=== PATIENT | female | born 1985 | race Caucasian/White ===

== ENCOUNTER 2018-10-10 18:10 | Emergency (ER) | payer SELFPAY ==
[2018-10-10 18:18] VITALS: BP 113/57
--- NOTE | 2018-10-10 19:05 | EDM.PDOC ---
ED HPI GENERAL MEDICAL PROBLEM - General Chief Complaint: Headache Stated Complaint: migraine Time Seen by Provider: 10/10/18 18:45 Source of Information: Reports: Patient History Limitations: Reports: No Limitations - History of Present Illness INITIAL COMMENTS - FREE TEXT/NARRATIVE: Patient comes to ER with complaint of migraine. History of migraines, felt to be hormonal in nature. Is trying control pills to avoid having a period to see if this helps the headaches but she missed a few pills and is now having breakthrough bleeding. Has nausea, no emesis. No auras. Denies neuro changes such as numbness/weakness. No visual changes. Headache is all over, but more right sided tonight. No usual changes in presentation or pain complaint when compared to previous migraines. 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, Other Medication(s) Right Head Pain Score (Numeric/FACES): 10 - Related Data Allergies Allergy/AdvReac Type Severity Reaction Status Date / Time ciprofloxacin [From Cipro] Allergy Hives Verified 10/10/18 18:11 Home Meds: Home Meds Loratadine/Pseudoephedrine [Claritin-D 24 Hour Tablet] 1 each PO DAILY 02/25/18 [History] Magnesium Oxide [Magnesium] 2 tab PO DAILY 10/10/18 [History] Rizatriptan Benzoate [Rizatriptan] 1 tab PO ASDIRECTED 10/10/18 [History] l-Norgest/E.estradion-E.estrad [Daysee 0.15-0.03-0.01 mg Tab] 1 tab PO DAILY [History] Past Medical History HEENT History: Reports: Impaired Vision Neurological History: Reports: Migraines Social & Family History - Caffeine Use Caffeine Use: Reports: Soda ED ROS GENERAL - Review of Systems Review Of Systems: See Below Constitutional: Reports: Decreased Appetite HEENT: Denies: Vertigo, Vision Change Respiratory: Reports: No Symptoms Cardiovascular: Reports: No Symptoms GI/Abdominal: Reports: Nausea. Denies: Abdominal Pain, Constipation, Diarrhea, Vomiting : Reports: No Symptoms Musculoskeletal: Reports: No Symptoms Skin: Reports: No Symptoms Neurological: Reports: Headache. Denies: Confusion, Dizziness, Numbness, Paresthesia, Seizure, Syncope, Tingling, Trouble Speaking, Difficulty Walking, Weakness, Change in Speech, Gait Disturbance Psychiatric: Reports: No Symptoms Hematologic/Lymphatic: Reports: No Symptoms - Physical Exam Exam: See Below Exam Limited By: No Limitations General Appearance: Alert, WD/WN, Mild Distress (sitting in dark room) Eye Exam: Bilateral Eye: EOMI, PERRL Ears: Normal External Exam, Hearing Grossly Normal Nose: No: Nasal Deformity, Nasal Swelling, Nasal Drainage Throat/Mouth: Normal Lips, Normal Voice, No Airway Compromise Head Exam: Atraumatic, Normocephalic Neck: Supple Respiratory/Chest: No Respiratory Distress, Lungs Clear Cardiovascular: Regular Rate, Rhythm GI/Abdominal: Soft (Female) Exam: Deferred Rectal (Female) Exam: Deferred Neuro Exam (Abbreviated): Alert, Oriented, Normal Cognition, Normal Gait, No Motor/Sensory Deficits Extremities: Normal Range of Motion Psychiatric: Normal Affect, Normal Mood Skin Exam: Warm, Dry, Intact, Normal Color Course - Vital Signs Last Recorded V/S: Last Vital Signs Temp 36.7 C 10/10/18 18:16 Pulse 81 10/10/18 18:16 Resp 18 10/10/18 18:16 BP 113/57 L 10/10/18 18:16 Pulse Ox 100 10/10/18 18:16 - Orders/Labs/Meds Orders: Active Orders 24 hr Category Date Time Status Sodium Chloride 0.9% [Saline Flush] Med 10/10/18 20:08 Ordered 10 ml FLUSH ASDIRECTED PRN Saline Lock Insert [OM.PC] Routine Oth 10/10/18 20:08 Ordered Medication Orders Sodium Chloride (Saline Flush) 10 ml FLUSH ASDIRECTED PRN PRN Reason: Keep Vein Open Meds: Medications Generic Name Dose Route Start Last Admin Trade Name Freq PRN Reason Stop Dose Admin Sodium Chloride 10 ml 10/10/18 20:08 Saline Flush FLUSH ASDIRECTED PRN Keep Vein Open Discontinued Medications Generic Name Dose Route Start Last Admin Trade Name Freq PRN Reason Stop Dose Admin Dihydroergotamine Mesylate 0.5 mg 10/10/18 20:10 Dhe 45 IVPUSH 10/10/18 20:11 ONETIME ONE Dihydroergotamine Mesylate 0.5 mg 10/10/18 20:41 10/10/18 20:43 Dhe 45 SUBCUT 10/10/18 20:42 0.5 mg ONETIME ONE Administration Diphenhydramine HCl 50 mg 10/10/18 19:03 10/10/18 19:23 Benadryl IM 10/10/18 19:04 50 mg ONETIME ONE Administration Sodium Chloride 1,000 mls @ 999 mls/hr 10/10/18 20:08 10/10/18 20:14 Normal Saline IV 10/10/18 21:08 999 mls/hr .BOLUS ONE Administration Ketorolac Tromethamine 60 mg 10/10/18 19:02 10/10/18 19:22 Toradol IM 10/10/18 19:03 60 mg ONETIME ONE Administration Promethazine HCl 25 mg 10/10/18 19:02 10/10/18 19:24 Phenergan IM 10/10/18 19:03 25 mg ONETIME ONE Administration Sumatriptan Succinate 6 mg 10/10/18 19:01 10/10/18 19:20 Imitrex SUBCUT 10/10/18 19:02 6 mg ONETIME ONE Administration Tramadol HCl 50 mg 10/10/18 19:04 10/10/18 19:26 Ultram PO 10/10/18 19:05 50 mg ONETIME ONE Administration - Re-Assessments/Exams Free Text/Narrative Re-Assessment/Exam: 10/10/18 21:14 Patient had minor improvement with Toradol/Benadryl/Phenergan and PO Tramadol. IV fluid bolus ordered along with SQ dose of DHE. Patient felt much improved after this intervention. Wished to be discharged home. Departure - Departure Time of Disposition: 22:00 Disposition: Home, Self-Care 01 Condition: Good Clinical Impression: Migraine - Discharge Information *PRESCRIPTION DRUG MONITORING PROGRAM REVIEWED*: Not Applicable *COPY OF PRESCRIPTION DRUG MONITORING REPORT IN PATIENT LENARD: Not Applicable Referrals: Viridiana Gerber PA [Primary Care Provider] - Forms: ED Department Discharge Additional Instructions: Go home and rest. Drink water, stay hydrated! Follow up as needed. - My Orders Last 24 Hours: My Active Orders 10/10/18 20:08 Sodium Chloride 0.9% [Saline Flush] 10 ml FLUSH ASDIRECTED PRN Saline Lock Insert [OM.PC] Routine - Assessment/Plan Last 24 Hours: My Active Orders 10/10/18 20:08 Sodium Chloride 0.9% [Saline Flush] 10 ml FLUSH ASDIRECTED PRN Saline Lock Insert [OM.PC] Routine
[2018-10-10] MEDS: SUMAtriptan 6 MG/0.5 ML SDV SUBCUT ONE (19:20)
[2018-10-10] MEDS: Ketorolac 60 MG/2 ML SDV IM ONE (19:22)
[2018-10-10] MEDS: diphenhydrAMINE 50 MG/ML SDV IM ONE (19:23)
[2018-10-10] MEDS: Promethazine 25 MG/ML SDV IM ONE (19:24)
[2018-10-10] MEDS: traMADol 50 MG Tab PO ONE (19:26)
[2018-10-10] MEDS ORDERED: Sodium Chloride 0.9% 10 ML Syringe FLUSH PRN (20:08)
[2018-10-10] MEDS ORDERED: Dihydroergotamine 1 MG/ML SDV IVPUSH ONE (20:10)
[2018-10-10] MEDS: Sodium Chloride 0.9% 1,000 ML IV ONE (20:14)
[2018-10-10] MEDS: Dihydroergotamine 1 MG/ML SDV SUBCUT ONE (20:43)
== END 2018-10-10 21:25 | disposition home or self-care (01) ==
LOC: LL.ED 18:10
DX: G43.909 Migraine, unspecified, not intractable, without status migrainosus (principal); Z88.1 Allergy status to other antibiotic agents; Z79.899 Other long term (current) drug therapy
CPT/HCPCS: 96360; 96372; 99283-25; A9270-GY; J1110; J1200; J1885; J2550; J3030; J7030

== ENCOUNTER 2021-07-16 08:07 | Emergency (ER) | payer BC ==
[2021-07-16] MEDS ORDERED: Sodium Chloride 0.9% 10 ML Syringe FLUSH PRN (08:35)
[2021-07-16] MEDS ORDERED: Magnesium Sulfate/Water 2 GM in Premix Bag 1 BAG IV ONE (08:35)
[2021-07-16] MEDS ORDERED: Ondansetron 4 MG/2 ML SDV IVPUSH ONE (08:35)
[2021-07-16] MEDS ORDERED: diphenhydrAMINE 50 MG/ML SDV IVPUSH ONE (08:35)
[2021-07-16] MEDS ORDERED: Ketorolac 30 MG/ML SDV IVPUSH ONE (08:35)
[2021-07-16] MEDS ORDERED: Sodium Chloride 0.9% 1,000 ML IV SCH (08:45)
== END 2021-07-16 10:40 | disposition home or self-care (01) ==
LOC: LL.ED 08:07
DX: G43.709 Chronic migraine without aura, not intractable, without status migrainosus (principal); Z88.1 Allergy status to other antibiotic agents
CPT/HCPCS: 96365; 96366; 96375; 99283; 99283-25; J1200; J1885; J2405; J3475; J7030

== ENCOUNTER 2022-01-04 16:06 | Emergency (ER) | payer BC ==
[2022-01-04] MEDS ORDERED: Prochlorperazine 10 MG/2 ML SDV IVPUSH ONE (16:18)
[2022-01-04] MEDS ORDERED: Sodium Chloride 0.9% 1,000 ML IV ONE (16:18)
[2022-01-04] MEDS ORDERED: diphenhydrAMINE 50 MG/ML SDV IVPUSH ONE (16:19)
[2022-01-04] MEDS ORDERED: Ketorolac 15 MG/ML SDV IVPUSH ONE (16:19)
[2022-01-04] MEDS: Sodium Chloride 0.9% 10 ML Syringe FLUSH PRN ×2 (16:45→17:10)
== END 2022-01-04 18:15 | disposition home or self-care (01) ==
LOC: LL.ED 16:06
DX: G43.909 Migraine, unspecified, not intractable, without status migrainosus (principal)
CPT/HCPCS: 96361; 96374; 96375; 99283; 99283-25; J0780; J1200; J1885; J3490; J7030

== ENCOUNTER 2022-11-06 08:00 | Emergency (ER) | payer BC ==
[2022-11-06] MEDS ORDERED: Ondansetron 4 MG/2 ML SDV IVPUSH PRN ×2 (08:06→08:07)
[2022-11-06] MEDS ORDERED: Sodium Chloride 0.9% 10 ML Syringe FLUSH PRN (08:06)
[2022-11-06] MEDS ORDERED: Sodium Chloride 0.9% 1,000 ML IV ONE (08:06)
[2022-11-06] MEDS ORDERED: Ketorolac 30 MG/ML SDV IVPUSH ONE (08:07)
[2022-11-06] MEDS ORDERED: Promethazine 25 MG/ML SDV IM ONE (08:07)
[2022-11-06] MEDS ORDERED: diphenhydrAMINE 50 MG/ML SDV IVPUSH ONE (08:09)
== END 2022-11-06 09:30 | disposition home or self-care (01) ==
LOC: LL.ED 08:00
DX: G43.009 Migraine without aura, not intractable, without status migrainosus (principal); Z88.1 Allergy status to other antibiotic agents
CPT/HCPCS: 96361; 96372; 96374; 96375; 99283; 99283-25; J1200; J1885; J2405; J2550; J7030

== ENCOUNTER 2023-03-29 08:39 | Emergency (ER) | payer BC, OTHER ==
[2023-03-29] MEDS ORDERED: Ketorolac 30 MG/ML SDV IVPUSH ONE (09:12)
[2023-03-29] MEDS ORDERED: Sodium Chloride 0.9% 1,000 ML IV ONE (09:13)
[2023-03-29] MEDS ORDERED: Ondansetron 4 MG/2 ML SDV IVPUSH ONE (09:13)
[2023-03-29] MEDS ORDERED: diphenhydrAMINE 50 MG/ML SDV IVPUSH ONE (09:13)
[2023-03-29] MEDS ORDERED: Sodium Chloride 0.9% 10 ML Syringe FLUSH PRN (09:25)
[2023-03-29] MEDS ORDERED: Acetaminophen 500 MG Tab PO ONE (10:13)
== END 2023-03-29 10:45 | disposition home or self-care (01) ==
LOC: LL.ED 08:39
DX: G43.909 Migraine, unspecified, not intractable, without status migrainosus (principal); Z86.16 Personal history of COVID-19; Z88.1 Allergy status to other antibiotic agents
CPT/HCPCS: 96361; 96374; 96375; 99283-25; A9270-GY; J1200; J1885; J2405; J7030

== ENCOUNTER 2023-04-23 08:58 | Emergency (ER) | payer BC ==
[2023-04-23 09:04] VITALS: BP 128/91; PULSE 87
== END 2023-04-23 09:50 | disposition home or self-care (01) ==
LOC: LL.ED 08:58
DX: H92.21 Otorrhagia, right ear (principal); H60.91 Unspecified otitis externa, right ear; Z88.8 Allergy status to other drugs, medicaments and biological substances; Z79.899 Other long term (current) drug therapy
CPT/HCPCS: 99282; 99283

== ENCOUNTER 2023-07-28 17:52 | Emergency (ER) | payer BC ==
[2023-07-28] MEDS: Ketorolac 30 MG/ML SDV IM ONE (18:20)
[2023-07-28] MEDS: Prochlorperazine 10 MG/2 ML SDV IM ONE (18:22)
[2023-07-28] MEDS: diphenhydrAMINE 50 MG/ML SDV IM ONE (18:23)
== END 2023-07-28 18:35 | disposition home or self-care (01) ==
LOC: LL.ED 17:52
DX: G43.909 Migraine, unspecified, not intractable, without status migrainosus (principal); Z79.899 Other long term (current) drug therapy; Z88.1 Allergy status to other antibiotic agents
CPT/HCPCS: 96372; 99283; J0780; J1200; J1885

== ENCOUNTER 2023-11-12 12:32 | Emergency (ER) | payer BC ==
[2023-11-12] MEDS ORDERED: Sodium Chloride 0.9% 10 ML Syringe FLUSH PRN (12:54)
[2023-11-12] MEDS: Sodium Chloride 0.9% 1,000 ML IV ONE (13:08)
[2023-11-12] MEDS: diphenhydrAMINE 50 MG/ML SDV IVPUSH ONE (13:09)
[2023-11-12] MEDS: Ketorolac 15 MG/ML SDV IVPUSH ONE (13:09)
[2023-11-12] MEDS: Prochlorperazine 10 MG/2 ML SDV IVPUSH ONE (13:09)
[2023-11-12 13:19] LABS: ANION GAP 10.4 meq/L (7-15); BLOOD UREA NITROGEN,BUN 10 mg/dL (7-18); CALCIUM 9.1 mg/dL (8.5-10.1); CARBON DIOXIDE,CO2 25.6 mmol/L (21.0-32.0); CHLORIDE,CL 102 mmol/L (98-107); CREATININE 0.57 mg/dL (0.51-1.17); GLUCOSE RANDOM 93 mg/dL (70-99); MAGNESIUM 1.3 mg/dL (1.8-2.4); SODIUM,NA 138 mmol/L (136-145)
[2023-11-12 13:20] LABS: ESTIMATED GFR 120 mL/min (>=60)
[2023-11-12] MEDS: Magnesium Sulfate/Water 2 GM in Premix Bag 1 BAG IV ONE (14:26)
== END 2023-11-12 16:14 | disposition home or self-care (01) ==
LOC: LL.ED 12:32
DX: G43.909 Migraine, unspecified, not intractable, without status migrainosus (principal); Z88.1 Allergy status to other antibiotic agents; Z79.899 Other long term (current) drug therapy; Z87.891 Personal history of nicotine dependence
CPT/HCPCS: 36415; 80048; 83735; 96365; 96366; 96375; 99283-25; J0780; J1200; J1885; J3475; J7030

== ENCOUNTER 2023-12-29 15:53 | Emergency (ER) | payer BC ==
[2023-12-29 16:50] LABS: BASOPHILS ABSOLUTE AUTO 0.03 K/uL (0.00-0.20); BASOPHILS PERCENT AUTO 0.3 % (0.0-2.0); EOSINOPHILS ABSOLUTE AUTO 0.04 K/uL (0.00-0.50); EOSINOPHILS PERCENT AUTO 0.4 % (0.0-5.0); HEMATOCRIT 36.6 % (34.0-46.0); HEMOGLOBIN 12.4 g/dL (11.7-15.5); LYMPHOCYTES PERCENT AUTO 32.6 % (10.0-50.0); MEAN CORPUSCULAR HGB CONC 33.9 g/dL (31.7-36.0); MEAN CORPUSCULAR VOLUME 94.6 fL (84.0-98.0); MONOCYTES ABSOLUTE AUTO 0.59 K/uL (0.00-1.00); MONOCYTES PERCENT AUTO 5.5 % (2.0-14.0); NEUTROPHILS ABSOLUTE AUTO 6.56 K/uL (1.40-7.00); NEUTROPHILS PERCENT AUTO 61.2 % (45.0-80.0); PLATELET COUNT,PLT 226 K/uL (150-350); RED BLOOD CELL COUNT 3.87 M/uL (3.77-5.09); RED CELL DISTRIBUTION WIDTH 12.5 % (11.2-14.1); WHITE BLOOD CELL COUNT,WBC 10.7 K/uL (4.0-10.2)
[2023-12-29 17:06] LABS: ALBUMIN 3.5 g/dL (3.4-5.0); ANION GAP 8.5 meq/L (7-15); BILIRUBIN TOTAL 0.3 mg/dL (0.2-1.0); CALCIUM 8.9 mg/dL (8.5-10.1); CARBON DIOXIDE,CO2 25.5 mmol/L (21.0-32.0); CREATININE 0.91 mg/dL (0.51-1.17); EST CRCL DRUG DOSING (CG) 76.17 mL/min; MAGNESIUM 1.8 mg/dL (1.8-2.4); POTASSIUM,K 3.6 mmol/L (3.5-5.1); PROTEIN TOTAL,TP 6.9 g/dL (6.4-8.2)
[2023-12-29 17:12] LABS: APPEARANCE,URINE CLEAR; BILIRUBIN,URINE NEGATIVE (NEGATIVE); COLOR,URINE YELLOW; GLUCOSE,URINE NEGATIVE (NEGATIVE); KETONES,URINE NEGATIVE (NEGATIVE); LEUKOCYTE ESTERASE,URINE TRACE (NEGATIVE); NITRITE,URINE NEGATIVE (NEGATIVE); PH,URINE 6.5 (5.0-9.0); PROTEIN,URINE NEGATIVE (NEGATIVE); UROBILINOGEN,URINE 0.2 E.U./dL (0.2-1.0)
[2023-12-29 17:20] LABS: OCCULT BLOOD,URINE SMALL (NEGATIVE); WBC,URINE 0-5 /HPF
[2023-12-29 18:28] VITALS: BP 110/59; PULSE 66
== END 2023-12-29 18:20 | disposition home or self-care (01) ==
LOC: LL.ED 15:53
DX: R23.2 Flushing (principal); R29.898 Other symptoms and signs involving the musculoskeletal system; Z79.899 Other long term (current) drug therapy
CPT/HCPCS: 36415; 80053; 81001; 83735; 85025; 85379; 87086; 99283